=== PATIENT | female | born 1995 ===

== ENCOUNTER 2017-02-25 11:29 | Emergency (ER) | payer BC ==
[2017-02-25 11:42] VITALS: BP 119/81
--- NOTE | 2017-02-25 11:47 | UC ---
Throat Pain/Nasal Anand HPI - HPI Summary HPI Summary: 21 year old female with 1 day of sore throat. Her sister just had (+) strep testing and pt slept in sisters bed recently. No fever. (+) nasal congestion. No cough. - History of Current Complaint Stated Complaint: SORE THROAT Time Seen by Provider: 02/25/17 11:36 Hx Obtained From: Patient Hx Last Menstrual Period: 02/17/17 ?: No - Allergies/Home Medications Allergies/Adverse Reactions: Allergies Allergy/AdvReac Type Severity Reaction Status Date / Time No Known Allergies Allergy Verified 02/25/17 11:40 Home Medications: Home Medications NK [No Home Medications Reported] 02/25/17 [History Confirmed 02/25/17] PMH/Surg Hx/FS Hx/Imm Hx Previously Healthy: Yes - Surgical History Surgical History: None - Family History Known Family History: Positive: None - Social History Occupation: Student Lives: With Family Alcohol Use: Occasionally Substance Use Type: None Smoking Status (MU): Never Smoked Tobacco Review of Systems ENT: Sore Throat, Nasal Discharge All Other Systems Reviewed And Are Negative: Yes Physical Exam Triage Information Reviewed: Yes Appearance: Well-Appearing, No Pain Distress, Well-Nourished Vital Signs: Initial Vital Signs Temp 98.2 F 02/25/17 11:40 Pulse 71 02/25/17 11:40 Resp 16 02/25/17 11:40 BP 119/81 02/25/17 11:40 Pulse Ox 100 02/25/17 11:40 Vital Signs Reviewed: Yes Eye Exam: Normal ENT Exam: Normal ENT: Positive: Pharyngeal erythema, TMs normal. Negative: Tonsillar swelling, Tonsillar exudate Dental Exam: Normal Neck exam: Normal Neck: Positive: 1 Respiratory Exam: Normal Cardiovascular Exam: Normal Musculoskeletal Exam: Normal Neurological Exam: Normal Psychological Exam: Normal Skin Exam: Normal Throat Pain/Nasal Course/Dx - Course Course Of Treatment: Sister with (+) strep in office and patient with similar Sx and pharyngeal erythema =-- treat at this time - Differential Dx/Diagnosis Differential Diagnosis/HQI/PQRI: Pharyngitis, Tonsillitis, URI Provider Diagnoses: Strep pharyngitis Discharge - Discharge Plan Condition: Good Disposition: HOME Prescriptions: Amoxicillin PO (*) [Amoxicillin 875 MG (*)] 875 mg PO BID #20 tab Patient Education Materials: Strep Throat (ED) Additional Instructions: Change toothbrush please.
== END 2017-02-25 12:10 | disposition home or self-care (01) ==
LOC: EDBD → UCCORT 11:29
DX: J02.0 Streptococcal pharyngitis (principal)
CPT/HCPCS: 99202; G0463